=== PATIENT | female | born 1975 | race Caucasian/White ===

== ENCOUNTER → 2023-01-06 16:12 | Outpatient (CLI) | payer BC, SELFPAY ==
[2023-01-06 16:53] LABS: Basophils % 0.3 % (0.1-2.0); Eosinophils # 0.1 K/mm3 (0.0-0.4); Hematocrit 39.4 % (37.0-47.0); Hemoglobin 12.7 g/dL (12.2-16.2); Lymphocytes # 2.4 K/mm3 (0.7-4.5); Lymphocytes % 31.3 % (10-50); Mean Corpuscular HGB Conc 32.2 g/dL (31.8-35.4); Mean Corpuscular Hemoglobin 28.9 pg (27.0-31.2); Mean Corpuscular Volume 89.8 fl (81-99); Mean Platelet Volume 8.1 fl (7.4-10.4); Monocytes # 0.5 K/mm3 (0.1-1.0); Neutrophils # 4.8 K/mm3 (1.8-7.8); Neutrophils % 61.4 % (37.0-80.0); Platelet Count 219 K/mm3 (142-424); Red Blood Count 4.39 M/mm3 (4.20-5.40); Red Cell Distribution Width 13.3 % (11.5-17.5); White Blood Count 7.8 K/mm3 (4.8-10.8)
[2023-01-06 17:17] LABS: Alanine Aminotransferase 14 U/L (12-78); Albumin Level 4.6 g/dl (3.5-5.0); Albumin/Globulin Ratio 1.6 (1.1-1.8); Alkaline Phosphatase 106 U/L (38-126); Amylase 38 U/L (30-110); Anion Gap 13.1 mEq/L (5-15); Aspartate Amino Transferase 17 U/L (14-36); Bilirubin,Total 0.7 mg/dl (0.2-1.3); Blood Urea Nitrogen 11 mg/dl (7-17); Calcium 9.2 mg/dl (8.4-10.2); Carbon Dioxide 27 mmol/L (22.0-30.0); Chloride 104 mmol/L (98-107); Chol/HDL Ratio 2.6 (1-3.5); Cholesterol 153 mg/dl (140-200); Estimated Glomerular Filt Rate 108 ml/min (>60); GFR (African American) 131 ML/MIN (>60); Globulin 2.8 g/dL (1.3-3.2); Glucose 92 mg/dl (74-100); HDL Cholesterol 58 mg/dl (40-60); Lipase 35 U/L (23-300); Potassium 4.1 mmoL/L (3.5-5.1); Sodium 140 mmol/L (136-145); Total Protein,Serum 7.4 g/dl (6.3-8.2); Triglycerides 33 mg/dl (30-150); VLDL Cholesterol 7 mg/dL (0-40)
[2023-01-06 17:28] LABS: Direct LDL Cholesterol 75.53 mg/dL (100-129)
[2023-01-06 17:48] LABS: Thyroid Stimulating Hormone 1.51 uIU/mL (0.465-4.68)
== END ==
PROVIDERS: PCP Physician Assistant; Visit Provider Student in an Organized Health Care Education/Training Program
DX: R10.13 Epigastric pain (principal); Z13.29 Encounter for screening for other suspected endocrine disorder; E66.9 Obesity, unspecified; Z68.36 Body mass index [BMI] 36.0-36.9, adult; Z79.899 Other long term (current) drug therapy
CPT/HCPCS: 36415; 80053; 80061; 82150; 82306; 83690; 84443; 85025

== ENCOUNTER → 2023-01-08 08:56 | Outpatient (CLI) | payer BC, SELFPAY ==
--- NOTE | 2023-01-08 08:56 | US_ITS ---
FINAL REPORT CLINICAL HISTORY: epigastric abd pain COMPARISON: None FINDINGS: Sonographic images of the right upper quadrant were obtained. The pancreas is partially obscured.The liver has an unremarkable appearance. A large gallstone is present in the gallbladder. There is wall thickening of the gallbladder as well, measuring 6 mm. There is no evidence of biliary ductal dilatation.The common duct measures 4mm. Limited images of the right kidney are unremarkable. IMPRESSION: A large gallstone is present in the bladder, with wall thickening of the gallbladder as described. If clinically indicated a nuclear medicine hepatobiliary scan might be helpful for further evaluation. Reviewed, Interpreted and Dictated by Dawood Cerda III, MD Transcribed by Julissa Lama Authenticated and [facility]
== END ==
PROVIDERS: PCP Physician Assistant; Visit Provider Student in an Organized Health Care Education/Training Program
DX: R10.13 Epigastric pain (principal)
CPT/HCPCS: 76700

== ENCOUNTER 2023-01-20 07:56 | Day surgery (SDC) | payer BC, SELFPAY ==
[2023-01-15 08:57] VITALS: BMI 36.0
[2023-01-20] VITALS (11 sets, daily range): BP systolic 120–146; BP diastolic 59–96; PULSE 54–81; RESP 12–18; TEMP 36–37.1; O2SAT 95–100
[2023-01-20 08:19] LABS: Urine Pregnancy, HCG Qual. Negative (Negative)
--- NOTE | 2023-01-20 08:38 | EXP.ANES.CKL ---
[facility] Disclaimer: The information contained in this section may have been updated after the patient was seen, as this information can be updated by other users. Medical History Allergies History of blood clot in deep vein during Surgical History History of colonoscopy History of esophagogastroduodenoscopy (EGD) Family History Other No significant family history Social History Smoking Status: Current some day smoker alcohol intake: current substance use type: denies use current occupational status: employed Travel in the last 8 weeks: None household members: family housing: house [facility] Anesthesia Checklist Patient Identification Patient Identification: Arm Band and Verbal (Name & ) Structural Data Admitted From: Home Planned Operative Procedure/s: Lap. cholecystectomy Consent for Planned Operative Procedure(s) Verified: Yes NPO Status Verified Time NPO: 00:00 Additional verifications Anesthesia Reactions: No Hx Blood Transfusions: No Blood Transfusion Reaction: No Airway Assessment Mallampati Score:: Class II C-Spine Mobility Assessed: Yes TMJ Mobility Assessed: Yes Dentition: Good Dentition Neurological Assessment Level of Consciousness: Awake Hx Seizures: No Numbness or tingling in extremities: No Anesthesia Plan Anesthesia Risk discussed: Yes Anesthesia Plan: Verified ASA Class: I Anesthesia Type: General
--- NOTE | 2023-01-20 10:58 | EXP.OP.NOTE ---
Date of procedure: 01/20/23 Pre-op Diagnosis:: Symptomatic gallstones Post-op Diagnosis:: Same Procedure performed:: Laparoscopic cholecystectomy Surgeon:: Dawood Medel MD PARLIAMENTARY LIBRARIAN:: Other Anesthesia: GETA Estimated blood loss (mL): 30 Clinical Note:: Patient is a very pleasant 47-year-old female referred by Ros Lawrence for gallbladder. About 2 weeks ago she had developed relatively acute onset of epigastric pain occurring postprandially. It persisted throughout the weekend. She states that she was unable to get comfortable. She was seen in her primary care provider's office and had a gallbladder ultrasound ordered which reveals large gallstone present with thickening of the gallbladder. The acute pain has eased somewhat but she has had ongoing constant discomfort. She had a very limited diet consisting of foods such as crackers, applesauce, and soups as anything more often causes exacerbation. She has radiation of the pain to the right upper quadrant into her shoulders. She has had some associated nausea. She was seen as a surgical consultation in the office. Options were discussed. She wished to pursue cholecystectomy. Operative findings:: Patient had a severely inflamed thickened hydropic gallbladder with omental adhesions. Due to distention and large stone in the neck of the gallbladder anatomy was altered with somewhat twisting of the neck and significant inflammatory response. Operative note:: Consent was obtained and patient was taken to the operating room. She was positioned in a supine position. General anesthesia was induced via endotracheal tube. Abdomen was prepped and draped in the standard surgical fashion. Subumbilical skin incision was made and while performing abdominal wall lift Veress needle was inserted. CO2 pneumoperitoneum was achieved to 15 mmHg. 11 mm optical trocar was inserted at the umbilicus. Intraperitoneal contents were visualized. She was noted to have significantly inflamed appearing gallbladder. She was positioned in reverse Trendelenburg with left side down. A couple 5 mm trocars were inserted in the right upper abdomen. 10 mm trocar was inserted in the epigastrium. Gallbladder was grasped. It was rather thickened and quite tense. Using the needle aspirator attempt was made to drain the gallbladder. There was some thick mucousy bile which was suctioned free with the gallbladder was still rather thickened and inflamed. It was grasped retracted anteriorly and superiorly over the dome of the liver. There was some omental adhesions to the gallbladder which were taken down using blunt dissection. Ultimately dissection was carried down to the neck of the gallbladder. There was a large stone impacted in the neck of the gallbladder. There was significant acute on chronic inflammatory response which made delineation of the anatomy somewhat difficult. The cystic artery was identified and was somewhat anterior to the ultimately identified cystic duct. There was twisting of the neck of the gallbladder likely due to the large stone and distention. Prolonged dissection was carried out ultimately identifying the cystic duct and cystic artery. Cystic duct was somewhat difficult to dissected free due to the inflammation. Ultimately the cystic duct and cystic artery were identified in the critical view of safety. The cystic duct was multiply clipped and sharply divided. Cystic artery was carefully coagulated with EVELYNE ultrasonic harmonic armen and divided. Gallbladder was dissected free from the liver in a retrograde fashion using EVELYNE ultrasonic harmonic armen. Gallbladder was placed within an Endo Catch retrieval device and removed from the peritoneal cavity via the umbilical trocar site which required some extension of the fascial incision and skin incision for delivery. Gallbladder fossa was inspected for hemostasis which was assured. Limited irrigation was performed. There was some spot use of electrocautery on t
--- NOTE | 2023-01-20 11:06 | P.PNANES_ITS ---
[facility] Anesthesia Record Part I Anesthesia Record I Intake, IV Amount: 1,100 Hydration: Adequate Estimated blood loss (mL): 5 Urine output (mL): 0 Blood Products used (#): none Blood Pressure: 135/74 SaO2: 100 Pulse Rate: 81 Airway Patency: Patent Respiratory Rate: 12 Temperature: 96.8 F Patient is:: Awake and Nasal O2 Stable to PACU at:: 11:05
[2023-01-21 12:00] VITALS: BP 123/59; PULSE 76; RESP 17; TEMP 36.4; O2SAT 95
--- NOTE | 2023-01-21 12:00 | P.PNANES_ITS ---
[facility] Anesthesia Record Part II Anesthesia Record Part II Discharge Time: 13:35 Destination: Surgical Day Care (OP Surgery) PACU nurse assessment reviewed?: Yes Patient Condition:: Good Anesthesia Complications:: None Swallowing reflex intact?: Yes Airway Patency: Patent Cyanosis?: No Blood Pressure: 123/59 SaO2: 95 Respiratory Rate: 17 Pulse Rate: 76 Temperature: 97.6 F Mental Status: Alert & Oriented Pain level:: 0 Nausea and/or vomitting:: None Intake, IV Amount: 0 Hydration: Adequate
== END 2023-01-20 12:34 | disposition home or self-care (01) ==
PROVIDERS: PCP Physician Assistant; Visit Provider Surgery
PROC: 0FT44ZZ Resection of Gallbladder, Percutaneous Endoscopic Approach (ICD-10-PCS; CPT 47562; principal; 2023-01-20 09:30)
DX: K80.10 Calculus of gallbladder with chronic cholecystitis without obstruction (principal); K66.0 Peritoneal adhesions (postprocedural) (postinfection)
CPT/HCPCS: 47562; 81025; 96374; J2405

== ENCOUNTER 2023-07-29 14:49 | Outpatient (CLI) | payer BC, SELFPAY ==
--- NOTE | 2023-07-29 14:52 | CA_ITS ---
FINAL REPORT CLINICAL HISTORY: RLE edema, warmth, h/o DVT 16 yrs ago during FINDINGS: DUPLEX VENOUS SONOGRAPHY OF THE RIGHT LOWER EXTREMITY Multiple transverse and longitudinal scans were performed of the femoropopliteal deep venous system, with augmentation and compression maneuvers. Normal phasic flow was noted in the visualized deep venous system. No intraluminal increased echogenicity is noted to suggest thrombus. There is normal compression and augmentation of the venous structures. No abnormal venous collaterals are seen. IMPRESSION: No evidence of deep venous thrombosis of the right lower extremity. Reviewed, Interpreted and Dictated by Daisha French MD Transcribed by Shanna Rios Authenticated and [facility]
[2023-07-29 15:50] LABS: Basophils % 0.4 % (0.1-2.0); Eosinophils # 0.1 K/mm3 (0.0-0.4); Eosinophils % 1.4 % (0.1-12.0); Hematocrit 33.2 % (37.0-47.0); Hemoglobin 11.9 g/dL (12.2-16.2); Lymphocytes # 2.2 K/mm3 (0.7-4.5); Lymphocytes % 34.5 % (10-50); Mean Corpuscular HGB Conc 35.8 g/dL (31.8-35.4); Mean Corpuscular Hemoglobin 34.2 pg (27.0-31.2); Mean Corpuscular Volume 95.5 fl (81-99); Mean Platelet Volume 8.4 fl (7.4-10.4); Monocytes # 0.4 K/mm3 (0.1-1.0); Monocytes % 5.6 % (1.7-9.3); Neutrophils # 3.8 K/mm3 (1.8-7.8); Neutrophils % 58.2 % (37.0-80.0); Platelet Count 233 K/mm3 (142-424); Red Blood Count 3.48 M/mm3 (4.20-5.40); Red Cell Distribution Width 13.4 % (11.5-17.5); White Blood Count 6.5 K/mm3 (4.8-10.8)
[2023-07-29 16:05] LABS: D-Dimer 0.35 ug/mL (0.0-0.5)
[2023-07-29 16:45] LABS: Erythrocyte Sedimentation Rate 25 mm/hr (0-20)
[2023-07-29 17:16] LABS: Alanine Aminotransferase 13 U/L (12-78); Albumin Level 4.1 g/dl (3.5-5.0); Albumin/Globulin Ratio 1.7 (1.1-1.8); Alkaline Phosphatase 92 U/L (38-126); Anion Gap 10.5 mEq/L (5-15); Aspartate Amino Transferase 21 U/L (14-36); Bilirubin,Total 0.3 mg/dl (0.2-1.3); Blood Urea Nitrogen 20 mg/dl (7-17); Carbon Dioxide 28 mmol/L (22.0-30.0); Chloride 105 mmol/L (98-107); Estimated Glomerular Filt Rate 90 ml/min (>60); GFR (African American) 109 ML/MIN (>60); Globulin 2.4 g/dL (1.3-3.2); Glucose 80 mg/dl (74-100); Potassium 4.5 mmoL/L (3.5-5.1); Sodium 139 mmol/L (136-145); Total Protein,Serum 6.5 g/dl (6.3-8.2)
[2023-07-29 17:22] LABS: C-Reactive Protein 20.2 mg/L (0-4)
== END 2023-07-29 23:59 ==
LOC: RT 14:52
PROVIDERS: PCP Physician Assistant; Visit Provider Student in an Organized Health Care Education/Training Program
DX: R60.0 Localized edema (principal); Z86.718 Personal history of other venous thrombosis and embolism; M25.561 Pain in right knee
CPT/HCPCS: 36415; 80053; 84550; 85025; 85378; 85651; 86140; 93971

== ENCOUNTER 2023-07-30 16:34 | Outpatient (CLI) | payer BC, SELFPAY ==
--- NOTE | 2023-07-30 16:39 | XR_ITS ---
PROCEDURE INFORMATION: Exam: XR Right Knee Exam date and time: 07/30/2023 4:42 PM Age: 47 years old Clinical indication: Pain; Knee; Right; Additional info: R knee pain, rle edema TECHNIQUE: Imaging protocol: Radiologic exam of the right knee. Views: 3 views. COMPARISON: CA VENOUS DOPPLER LE RT 07/29/2023 3:03 PM FINDINGS: Bones/joints: Mild/moderate tricompartmental degenerative joint disease. No fracture or destructive lesion. Soft tissues: Normal. IMPRESSION: 1. No acute findings. 2. Mild/moderate tricompartmental degenerative joint disease.
== END 2023-07-30 23:59 ==
LOC: RAD 16:34
PROVIDERS: PCP Student in an Organized Health Care Education/Training Program; Visit Provider Student in an Organized Health Care Education/Training Program
DX: M25.561 Pain in right knee (principal); R60.0 Localized edema
CPT/HCPCS: 73562

== ENCOUNTER 2024-04-30 09:29 | Outpatient (CLI) | payer BC, SELFPAY ==
[2024-04-30 15:52] LABS: Coronavirus 19, PCR Not Detected (NotDetected); Influenza A, PCR Not Detected (NotDetected); Influenza B, PCR Not Detected (NotDetected)
== END 2024-04-30 23:59 | disposition home or self-care (01) ==
LOC: LAB.DROPOF 05-03 09:30
PROVIDERS: PCP Family Medicine; Visit Provider Family Medicine
DX: J02.9 Acute pharyngitis, unspecified (principal); Z72.0 Tobacco use
CPT/HCPCS: 87636